=== PATIENT | female | born 1980 | race Caucasian/White ===

== ENCOUNTER 2021-07-28 15:32 | Emergency (ER) | payer BC ==
[~2021-07-28] VITALS: Ht 170.2 cm; Wt 70.0 kg
[2021-07-28] MEDS ORDERED: METHYLPREDNISOLONE SOD SUCC 125 MG/2 ML VIAL IV STA (15:50)
[2021-07-28] MEDS ORDERED: IPRATROPIUM BROMIDE (0.02%) 0.5MG/2.5ML NEB HHN STA (15:50)
[2021-07-28] MEDS: ALBUTEROL (0.083%) 2.5MG/3ML NEB HHN SCH ×3 (16:00→17:31)
[2021-07-28 16:15] VITALS: BP 137/80
[2021-07-28 16:19] LABS: BASOPHILS % 0.7 % (0.0-2.0); EOSINOPHILS % 2.6 % (0.0-5.0); HEMATOCRIT. 37.3 % (36.0-48.0); HEMOGLOBIN. 13.2 g/dL (12.0-16.0); LYMPHOCYTES % 44.5 % (20.0-50.0); MEAN CORPUSCULAR HEMOGLOBIN 33.5 pg (28.0-32.0); MEAN PLATELET VOLUME 7.6 fl (7.4-10.4); MONOCYTES % 8.1 % (2.0-8.0); NEUTROPHILS % 44.1 % (40.0-76.0); PLATELET 303 x1000/uL (130-400); RED BLOOD CELL COUNT 3.93 mill/uL (4.2-5.4)
[2021-07-28 16:21] LABS: CHLORIDE 108 mEq/L (98-107)
[2021-07-28 16:24] LABS: HCG SCREEN NEGATIVE
[2021-07-28] MEDS ORDERED: POTASSIUM CHLORIDE 20MEQ TABLET SR PO NR (17:00)
[2021-07-28] MEDS ORDERED: P20 MT (17:13)
[2021-07-28] MEDS ORDERED: ALBU90AE INH (17:13)
== END 2021-07-28 17:29 | disposition home or self-care (01) ==
LOC: ER 15:32
DX: J45.909 Unspecified asthma, uncomplicated (principal); E87.6 Hypokalemia; F17.210 Nicotine dependence, cigarettes, uncomplicated; Z86.16 Personal history of COVID-19
CPT/HCPCS: 36415; 71045; 80053; 84484; 84703; 85025; 85379; 93005; 94640; 96374; 99285; J2930; Z7610